=== PATIENT | male | born 1945 ===

== ENCOUNTER 2019-11-15 07:43 | Outpatient (CLI) | payer MEDICARE ==
--- NOTE | 2019-11-15 09:17 | ULT ---
ABDOMINAL AORTIC ULTRASOUND: INDICATION: Abdominal aortic screening. FINDINGS: The proximal abdominal aorta is obscured by overlying bowel gas. The image of the visualized abdominal aorta shows mild atherosclerotic change. No evidence of aneury sm. Mid abdominal aorta diameter: 2.0 cm. Distal abdominal aorta diameter: 1.8 cm. The proximal iliac arteries are imaged and appear unremarkable measuring approximately 1.0 cm diamete r. POS: AGW
== END 2019-11-15 07:44 | disposition home or self-care (01) ==
LOC: SCSULT 07:43
PROVIDERS: ATTEND Family Medicine Sports Medicine
DX: Z00.00 Encounter for general adult medical examination without abnormal findings (principal); Z13.6 Encounter for screening for cardiovascular disorders
CPT/HCPCS: 76775